=== PATIENT | male | born 1940 | race Caucasian/White ===

== ENCOUNTER → 2016-07-01 | Day surgery (SDC) | payer MEDICARE, BC ==
[~2016-07-01] MED LIST: ALTACE PO; ARIXTRA; ARIXTRA2.5 MG/0.5 INJ; ASPIRIN PO; AUGMENTIN PO; AUGMENTIN875 M1 PO; COMBIVENT MININEB INH; COMBIVENT U/D3 M1 INH; COUMADIN PO; COUMADIN5 MG PO; COUMADIN7.5 MG PO; DILANTIN; FLOMAX0.4 M1 PO; HCTZ PO; HYDROCODONE-APA1 T30; HYTRIN PO; IMITREX PO; LOPRESSOR PO; LOTENSIN PO; LOVENOX120 MG/0.8 INJ; LOVENOX80 MG/0.8 INJ; METHADONE PO; MORPHINE SULFAT60 M1 PO; MS CONTIN60 MG PO; MULTI-VITAMIN1 TAB; OXYCODONE HCL20 M1 PO; OXYCONTIN PO; OXYCONTIN40 MG PO; PERCOCET PO; PHENERGAN12.5 M1 PO; PHENERGAN25 M1 PO; PHENTERMINE H37.5 M1 PO; PLAVIX PO; PREDNISONE PO; PREDNISONE5 M1 PO; PRILOSEC20 MG PO; PROVENT1 EACH INH; RESTORIL15 MG PO; SYMBICORT INH; TENORMIN50 MG PO; VITAMIN B-1000 MCG/1 IJ; WELLBUTRIN XL; ZANAFLEX4 M1 PO; ZOCOR PO
--- NOTE | ~2016-07-01 | OR ---
Unit #: [id number] #: [id number] Patient: RODO CHOWDHURY [id number] [address] [address] [id number] O MR#: [id number] NAME: RODO CHWODHURY ROOM: Date of Procedure: 07/01/2016 Admission Date: 07/01/2016 Surgeon: Rigo Kumar M.D. : 1940 Attending Physician: Rigo Kumar M.D. Primary Care Physician: Lj Stringer Jr., M.D. OPERATIVE REPORT JOB NOTE: CC: [facility] PREOPERATIVE DIAGNOSES 1. Degenerative lumbar disk disease, back pain, spinal stenosis, radiculopathy. 2. Neck pain, cervical radiculopathy, degenerative cervical disk disease. POSTOPERATIVE DIAGNOSES 1. Degenerative lumbar disk disease, back pain, spinal stenosis, radiculopathy. 2. Neck pain, cervical radiculopathy, degenerative cervical disk disease. PROCEDURES PERFORMED 1. Lumbar epidural steroid injection with intravenous sedation and fluoroscopic guidance for needle localization. 2. Cervical epidural steroid injection with fluoroscopic guidance. INDICATIONS FOR PROCEDURE The patient is a 75-year-old male with previously mentioned diagnosis. It is partially settled with conservative and rehabilitative measures, but has significant pain consistent with radiculitis. Plan is for trial of epidural steroids at both the cervical and lumbar level. DESCRIPTION OF PROCEDURE The patient was placed in a seated position. Standard monitors were applied. 2 mg of Versed were given for sedation and anxiolysis, which were adequate. Vital signs remained stable. Sterile prep and drape then of lumbar area was performed. The skin then at the L4-L5 level was localized with 1% lidocaine. An 18-gauge Hustead needle was then advanced via loss of resistance technique and fluoroscopic guidance in toward the epidural space. After confirming proper positioning with fluoroscopy and radiographic contrast, 80 mg of Depo-Medrol and 4 mL of 0.125% bupivacaine were deposited. The patient tolerated this part of procedure well. A separate kit was used to sterilely prepped and draped the patient's cervical spine. The skin then at the C6-C7 level was localized with 1% lidocaine. An 18-gauge Hustead needle was then advanced via hanging drop technique and fluoroscopic guidance in toward the epidural space. After confirming proper needle tip positioning with fluoroscopy and radiographic contrast, a dose of 80 mg of Depo-Medrol and 2 mL of 0.25% bupivacaine were deposited. The patient tolerated the procedure otherwise well and was discharged to the recovery room in stable condition. Unit #: [id number] #: [id number] Patient: RODO CHOWDHURY Dictated by... Aneudy Gates/estela TD: 07/02/2016 00:03 JOB #: [id number] OPERATIVE REPORT Page 1 of 1 X Rigo Kumar MD X PROCEDURE OPERATIVE NOTE
== END | disposition home or self-care (01) ==
LOC: CCSC 10:35
DX: M51.16 Intervertebral disc disorders with radiculopathy, lumbar region (principal); M50.10 Cervical disc disorder with radiculopathy, unspecified cervical region; M48.06 Spinal stenosis, lumbar region; I25.10 Atherosclerotic heart disease of native coronary artery without angina pectoris; J44.9 Chronic obstructive pulmonary disease, unspecified; M19.90 Unspecified osteoarthritis, unspecified site
CPT/HCPCS: J1040; J2250

== ENCOUNTER → 2016-07-22 | Day surgery (SDC) | payer MEDICARE, BC | END | disposition home or self-care (01) | LOC: CCSC 10:50 | DX: M51.16 Intervertebral disc disorders with radiculopathy, lumbar region (principal); M50.10 Cervical disc disorder with radiculopathy, unspecified cervical region; Z79.899 Other long term (current) drug therapy; Z79.891 Long term (current) use of opiate analgesic; Z79.01 Long term (current) use of anticoagulants | CPT/HCPCS: J1040; J2250 ==

== ENCOUNTER → 2016-08-05 | Day surgery (SDC) | payer MEDICARE, BC ==
--- NOTE | ~2016-08-05 | OR ---
Unit #: [id number] #: [id number] Patient: RODO CHOWDHURY [id number] [address] [place], [place] [address] [id number] O MR#: [id number] NAME: RODO CHOWDHURY ROOM: Date of Procedure: 08/05/2016 Admission Date: 08/05/2016 Surgeon: Rigo Kumar M.D. : 1940 Attending Physician: Rigo Kumar M.D. Referring Physician: Rigo Kumar M.D. Primary Care Physician: Lj Stringer Jr., M.D. OPERATIVE REPORT PREOPERATIVE DIAGNOSES 1. Back pain, radiculopathy, degenerative disk disease. 2. Neck pain, cervical radiculopathy, degenerative cervical disk disease. POSTOPERATIVE DIAGNOSES 1. Back pain, radiculopathy, degenerative disk disease. 2. Neck pain, cervical radiculopathy, degenerative cervical disk disease. PROCEDURES PERFORMED 1. Lumbar epidural steroid injection with intravenous sedation and fluoroscopic guidance for needle localization. 2. Cervical epidural steroid injection with fluoroscopic guidance. INDICATIONS FOR PROCEDURE The patient is a 75-year-old male with previously mentioned diagnosis. He had epidural steroid injections done 2 weeks ago after failing attempts of conservative treatment in this patient with nonsurgical pathology. He has both neck and back issues with approximately 50%. Plan is to repeat second injection at this point. DESCRIPTION OF PROCEDURE The patient was placed in a seated position. Standard monitors were applied. 2 mg of Versed were given for sedation and anxiolysis, which were adequate. Vital signs remained stable. Sterile prep and drape then of lumbar area was performed. The skin then at the L5 level was localized with 1% lidocaine. An 18-gauge Hustead needle was then advanced via loss of resistance technique and fluoroscopic guidance in toward the epidural space. After confirming proper positioning with fluoroscopy and radiographic contrast, 80 mg of Depo-Medrol and 4 mL of 0.125% bupivacaine were deposited. PROCEDURE #2: A separate kit was used to sterilely prep and drape the patient's cervical spine. The skin at the C5-C6 level was localized with 1% lidocaine. An 18-gauge Hustead needle was then advanced via hanging drop technique and fluoroscopic guidance in toward the epidural space. After confirming proper positioning with fluoroscopy and radiographic contrast, 80 mg of Depo-Medrol and 2 mL of 0.25% bupivacaine were deposited. The patient tolerated this procedure well. Of note, this procedure was done on 07/22/2016. This note is being dictated at this point. The patient had another procedure done actually on 08/05/2016, but it is a separate procedure being dictated for 07/22/2016. Unit #: [id number] #: [id number] Patient: RODO CHOWDHURY Dictated by... Aneudy Gates/estela TD: 08/06/2016 10:55 JOB #: [id number] OPERATIVE REPORT Page 1 of 1 X Rigo Kumar MD X PROCEDURE OPERATIVE NOTE
--- NOTE | ~2016-08-05 | OR ---
Unit #: [id number] #: [id number] Patient: RODO CHOWDHURY [id number] [address] [address] [id number] O MR#: [id number] NAME: RODO CHOWDHURY ROOM: Date of Procedure: 08/05/2016 Admission Date: 08/05/2016 Surgeon: Rigo Kumar M.D. : 1940 Attending Physician: Rigo Kumar M.D. Referring Physician: Rigo Kumar M.D. Primary Care Physician: Lj Stringer Jr., M.D. OPERATIVE REPORT PREOPERATIVE DIAGNOSES 1. Low back pain, radiculopathy, degenerative lumbar disk disease. 2. Neck pain, cervical radiculopathy, degenerative cervical disk disease. POSTOPERATIVE DIAGNOSES 1. Low back pain, radiculopathy, degenerative lumbar disk disease. 2. Neck pain, cervical radiculopathy, degenerative cervical disk disease. PROCEDURES PERFORMED 1. Lumbar epidural steroid injection with intravenous sedation and fluoroscopic guidance for needle localization. 2. Cervical epidural steroid injection with fluoroscopic guidance. INDICATIONS FOR PROCEDURE The patient is a 76-year-old male with previously mentioned diagnoses. He has significant cervical and thoracic as well as lumbar nonsurgical disk and spine disease. He was treated medically with p.r.n. epidural steroids, that have given him very good improvement in his neck and low back issues. He failed all times the conservative treatment. Two injections were done at this point over the last month, so he has gotten added improvement in all components of his pain. He is able to be much more functionally sleeping better and it has greatly increased his ADLs. The pain is now back down to poorly controlled, so we are going to proceed with a final injection at this point and see the patient back at the pain center in a few months' time. DESCRIPTION OF PROCEDURE The patient was placed in a seated position. Standard monitors were applied. 2 mg of Versed were given for sedation and anxiolysis, which were adequate. Vital signs remained stable. Sterile prep and drape then of the lumbar area was performed. The skin then at the L4-L5 level was localized with 1% lidocaine. An 18-gauge NightOwl needle was then advanced via loss of resistance technique and fluoroscopic guidance in toward the epidural space. After confirming proper positioning with fluoroscopy and radiographic contrast, 80 mg of Depo-Medrol and 4 mL of 0.125% bupivacaine were deposited. The patient tolerated this part of procedure well. PROCEDURE #2: Cervical epidural steroid injection with fluoroscopic guidance. A separate kit was used to sterilely prep and drape the patient's cervical spine. The skin then at the C5-C6 level was localized with 1% lidocaine. An 18-gauge NightOwl needle was then advanced via Unit #: [id number] #: [id number] Patient: RODO CHOWDHURY hanging drop technique and fluoroscopic guidance in toward the epidural space. After confirming proper positioning with fluoroscopy and radiographic contrast, a dose of 80 mg of Depo-Medrol and 2 mL of 0.25% bupivacaine were deposited. The patient tolerated the procedure otherwise well and was discharged to the recovery room in stable condition. Dictated by... Aneudy Gates/estela TD: 08/06/2016 10:31 JOB #: [id number] OPERATIVE REPORT Page 1 of 1 X Rigo Kumar MD X PROCEDURE OPERATIVE NOTE
== END | disposition home or self-care (01) ==
LOC: CCSC 10:39
DX: M50.10 Cervical disc disorder with radiculopathy, unspecified cervical region (principal); M51.16 Intervertebral disc disorders with radiculopathy, lumbar region; I25.10 Atherosclerotic heart disease of native coronary artery without angina pectoris; J44.9 Chronic obstructive pulmonary disease, unspecified; M19.90 Unspecified osteoarthritis, unspecified site; Z79.51 Long term (current) use of inhaled steroids; Z79.891 Long term (current) use of opiate analgesic; Z79.899 Other long term (current) drug therapy
CPT/HCPCS: C1887; J1040; J2250

== ENCOUNTER 2016-08-21 19:43 | Inpatient (IN) | payer MEDICARE, BC ==
[~2016-08-21] VITALS: Ht 188 cm; Wt 109.0 kg
--- NOTE | ~2016-08-21 | EKG ---
PATIENT: RODO CHOWDHURY UNIT #: [id number] Ventricular Rate: 136 BPM Atrial Rate: 107 BPM QRS Duration: 82 ms Q-T Interval: 286 ms QTC Calculation(Bezet): 430 ms Calculated R [place]: -42 degrees Calculated T [place]: 58 degrees Diagnosis Line: Suspect unspecified pacemaker failure Diagnosis Line: Atrial fibrillation Left axis deviation Diagnosis Line: Abnormal ECG Diagnosis Line: No previous ECGs available Diagnosis Line: Confirmed by SAVANNAH FREEDMAN MD ([id number]) on Diagnosis Line: 08/22/2016 5:42:10 PM INTERPRETING MD: TANO KIM
--- NOTE | ~2016-08-21 | CT71 ---
[facility] Service of [facility] RADIOLOGY TEXT RESULTS PATIENT: RODO CHOWDHURY LOCATION: C5 560-01 : [birth year] UNIT #: [id number] AGE: [address]: Mariia Kilgore MD SEX: M ORDER DR: [id number] [facility] [address] [facility]. [place], [place] [address] [id number] I MR#: [id number] Acc #: [id number] NAME: RODO CHOWDHURY : 1940 SEX: M STUDY DATE/TIME: 08/26/2016 10:24 UNIT: [facility] ROOM: [facility] STUDY DESCRIPTION: CT Head Wo Contrast Attending Physician: Mariia Kilgore M.D. Ordering Physician: Mariia Kilgore M.D. Primary Care Physician: Lj Stringer Jr., M.D. MEDICAL IMAGING REPORT This report is preliminary unless electronic signature is present EXAM Head CT, 08/26. INDICATIONS Weakness, dizziness and blurred vision for 3 days after a fall. TECHNIQUE Axial images were obtained from the base to the vertex without contrast. This CT exam was performed with one or more of the following radiation dose reduction techniques: automatic exposure control, adjustment of mA and/or kV according to patient size, and iterative reconstruction. COMPARISON No comparison. FINDINGS There is generalized atrophy. Ventricular size and configuration are normal. Chronic small vessel ischemic changes are present in the white matter. Atherosclerotic calcifications are present in the carotid siphons. There are no skull fractures. There is no acute infarct or hemorrhage. There are no masses. IMPRESSION Atrophy with chronic small vessel ischemic disease in the white matter. No acute findings. Dictated by... Issa Solomon Jr., M.D. THIS IS AN ELECTRONICALLY VERIFIED REPORT Issa Solomon Jr., M.D. at 08/26/2016 5:05 PM RLK/anyit [facility] Service of [facility] RADIOLOGY TEXT RESULTS PATIENT: RODO CHOWDHURY LOCATION: [facility] 560-01 : [birth year] UNIT #: [id number] AGE: [address]: Mariia Kilgore MD SEX: M ORDER DR: TD: 08/26/2016 16:57 JOB #: [id number] MEDICAL IMAGING REPORT Page 1 of 1 COPY
--- NOTE | ~2016-08-21 | HP ---
Unit #: [id number] #: [id number] Patient: RODO CHOWDHURY [id number] [place] [address] [facility]. [place], [place] [address] [id number] I MR#: [id number] NAME: RODO CHOWDHURY ROOM: [facility] Age: 76 Sex: M Admission Date: 08/21/2016 : 1940 Attending Physician: Mariia Kilgore M.D. Primary Care Physician: Lj Stringer Jr., M.D. HISTORY AND PHYSICAL CHIEF COMPLAINT Shortness of breath, chest pain, cough with yellowish phlegm for two weeks. DISCUSSION This is a 76-year-old gentleman who is a very poor historian with history of chronic obstructive pulmonary disease, oxygen dependent, chronic respiratory failure, recurrent DVT, and pulmonary embolism on Lovenox, obstructive sleep apnea, noncompliant with CPAP, chronic pain, benign prostatic hypertrophy, coronary artery disease, migraines, follows with the [facility]. He was brought to the emergency room by his niece. He lives alone. Niece daily checks on him. He was brought to the emergency room with the chief complaint of chest pain, left-sided with deep breath, cough with yellowish phlegm. He was found to be atrial fibrillation with rapid ventricular rate in the emergency room, initially given Cardizem 20 mg IV, then started on Cardizem drip and on further workup, he has a large left mid lung infiltrate with BUN 42, creatinine 2.4, sodium is 124, and eventually being admitted. He is a very poor historian most of the information talking to his niece and talking to him altogether. He said that he had been sick for the last two weeks which has slowly progressively getting worse with yellowish phlegm and left-sided chest pain, shortness of breath, said he cannot breathe. PAST MEDICAL HISTORY 1. History of chronic obstructive pulmonary disease, oxygen-dependent at home. 2. Chronic respiratory failure. 3. History of recurrent DVT and pulmonary embolism. 4. Obstructive sleep apnea uses CPAP off and on. 5. Chronic pain. 6. Benign prostatic hypertrophy. 7. Coronary artery disease. 8. Migraine. PAST SURGICAL HISTORY 1. He has history of bilateral total knee arthroplasty. 2. Hernia repair bilaterally. SOCIAL HISTORY He used to be very heavy smoker for long time, three packs daily, he still smokes one pack a week, denies alcohol, denies illicit drug use. FAMILY HISTORY Positive for lung and breast cancer and bone malignancy in the family. Unit #: [id number] #: [id number] Patient: RODO CHOWDHURY HOME MEDICATIONS Medications from home is the followin. Restoril 15 mg at bedtime 2. Phenergan 25 mg p.r.n. 3. Flomax 0.4 mg daily 4. MS Contin 60 mg q.8h 5. Zanaflex 40 mg p.o. q.8h 6. Oxycodone 20 mg four times daily 7. Lovenox 80 mg subcu injection daily 8. Combivent q.6h p.r.n. 9. Imitrex 100 mg twice daily p.r.n. REVIEW OF SYSTEMS Negative except as in history of present illness. PHYSICAL EXAMINATION GENERAL: Elderly male lying in the bed comfortably, currently not in any distress. He is alert, awake, and oriented x3, comfortable, not in any distress. VITAL SIGNS: Current vitals are following, temperature 98.4, heart rate is 108, respiratory rate 22, and blood pressure 94/56, oxygen 100%. HEENT EXAMINATION: Pupils equal reactive to light and accommodation. Head: Normocephalic and atraumatic. NECK: Supple. No jugular venous distention. HEART: S1 and S2, rate irregular. LUNGS: Clear air entry bilaterally. ABDOMEN: Soft and nontender. Bowel sounds are positive, distended. EXTREMITIES: Inspection normal. Trace edema. No cyanosis, no clubbing. NEUROLOGIC: Alert and oriented x3, cranial nerves II through XII intact, moving all extremities. No focal neurologic deficit. PSYCH: Normal mood and affect. SKIN: Warm and dry, no skin lesions. DIAGNOSTIC STUDIES LABORATORY: Laboratory workup is the following, sodium is 124, potassium is 4.7, chloride 86, CO2 20, glucose 102, BUN 42, creatinine 2.4, LFT, bilirubin total 2.8, bilirubin indirect 1.4, and direct 1.4, white count is 22, hemoglobin is 15, hematocrit 47, platelets 147, INR 1.3. IMAGING: Chest x-ray shows left mid lung infiltrate. ASSESSMENT/PLAN 1. Pneumonia with left mid lung infiltrate, started on IV Rocephin, Zithromax. 2. Acute kidney injury, questionable baseline. He denied any history of kidney problems, continue IV fluids and normal saline, evaluate in the morning. 3. Atrial fibrillation with rapid ventricular rate. Will continue on Cardizem drip to control it, ask cardiology to evaluate. 4. Hyponatremia, IV fluids, normal saline, check TSH. 5. Leukocytosis. 6. Chronic obstructive pulmonary disease, oxygen-dependent home. 7. Chronic respiratory failure. 8. History of recurrent DVT and pulmonary embolism on Lovenox subcu on daily basis. 9. Obstructive sleep apnea, noncompliant with CPAP. 10. Chronic pain. 11. History of benign prostatic hypertrophy. Unit #: [id number] #: [id number] Patient: RODO CHOWDHURY 12. Coronary artery disease. 13. Migraine. Dictated by Aneudy Reynolds/denice TD: 08/22/2016 12:42 JOB #: [id number] HISTORY AND PHYSICAL Page 1 of 1 X X HISTORY AND PHYSICAL
--- NOTE | ~2016-08-21 | CR72 ---
[facility] A Service of [facility] RADIOLOGY TEXT RESULTS PATIENT: RODO CHOWDHURY LOCATION: [place] [id number] : 40 UNIT #: [id number] AGE: [address]: Mraiia Kilgore MD SEX: M ORDER DR: [id number] [facility] [address] [facility]. [place], [place] [address] [id number] I MR#: [id number] Acc #: [id number] NAME: RODO CHOWDHURY : 1940 SEX: M STUDY DATE/TIME: 08/23/2016 2:38 UNIT: [facility] ROOM: [facility] STUDY DESCRIPTION: CR Chest Single View Portable Attending Physician: Mariia Kilgore M.D. Ordering Physician: Maged Samuel M.D. Primary Care Physician: Lj Stringer Jr., M.D. MEDICAL IMAGING REPORT This report is preliminary unless electronic signature is present EXAM Portable chest INDICATION Pneumonia follow up. PROCEDURE Frontal view chest. COMPARISON 08/21/2016. FINDINGS Cardiomegaly is stable. Stable dense opacity in the left upper lung zone. No pneumothorax or new dense consolidation. IMPRESSION No change from 08/21/2016. Persistent left upper lung zone opacity. Dictated by... Sean Baer M.D. THIS IS AN ELECTRONICALLY VERIFIED REPORT Sean Baer M.D. at 08/23/2016 10:02 PM MARCELLO/alex TD: 08/23/2016 10:18 JOB #: [id number] MEDICAL IMAGING REPORT Page 1 of 1 COPY
--- NOTE | ~2016-08-21 | CR7 ---
[facility] A Service of [facility] & [facility] RADIOLOGY TEXT RESULTS PATIENT: RODO CHOWDHURY LOCATION: B 54-01 : 40 UNIT #: [id number] AGE: [address]: Mariia Kilgore MD SEX: M ORDER DR: [id number] [facility] [address] [facility]. [place], [place] [address] [id number] I MR#: [id number] Acc #: [id number] NAME: RODO CHOWDHURY : 1940 SEX: M STUDY DATE/TIME: 08/30/2016 15:39 UNIT: [facility] ROOM: [facility] STUDY DESCRIPTION: CR Abdomen Single AP View Attending Physician: Mariia Kilgore M.D. Ordering Physician: Mariia Kilgore M.D. Primary Care Physician: Lj Stringer Jr., M.D. MEDICAL IMAGING REPORT This report is preliminary unless electronic signature is present EXAM AP abdomen, 08/30/2016 HISTORY Abdominal distension, bloating and abdominal pain for 9 days. COMPARISON Flat and upright views of the abdomen, 08/27/2016 FINDINGS Study is limited secondary to patient body habitus. Extensive gaseous distension of both large and small bowel loops is thought to be present, most prominent within the region of the ascending colon and hepatic flexure. The degree of gaseous distension of the ascending colon appears increased compared to the prior examination. No gross free intraperitoneal air is identified on this supine study. No pneumatosis is evident. Incidental note is made of lumbar curvature to the left with endplate spurring. Imaged lung bases appear clear. IMPRESSION Diffuse gaseous dilation of multiple large and small bowel loops, once again favoring the presence of diffuse intracolonic ileus. The degree of gaseous distension of the ascending colon appears increased compared to 08/27/2016. Dictated by... Lisette Rees M.D. THIS IS AN ELECTRONICALLY VERIFIED REPORT Lisette Rees M.D. at 09/01/2016 11:57 AM NICANOR/chiquita TD: 08/31/2016 08:42 [facility] of [facility] RADIOLOGY TEXT RESULTS PATIENT: RODO CHOWDHURY LOCATION: [facility] 547-01 : 40 UNIT #: [id number] AGE: [address]: Mariia Kilgore MD SEX: M ORDER DR: JOB #: [id number] MEDICAL IMAGING REPORT Page 1 of 1 COPY
--- NOTE | ~2016-08-21 | CT55 ---
[facility] A Service of [facility] & [facility] RADIOLOGY TEXT RESULTS PATIENT: RODO CHOWDHURY LOCATION: C5B 560-01 : 40 UNIT #: [id number] AGE: [address]: Mariia Kilgore MD SEX: M ORDER DR: [id number] [facility] [address] [facility] [place], [place] [address] [id number] I MR#: [id number] Acc #: [id number] NAME: RODO CHOWDHURY : 1940 SEX: M STUDY DATE/TIME: 08/24/2016 17:32 UNIT: [facility] ROOM: [facility] STUDY DESCRIPTION: CT Chest W Con Attending Physician: Mariia Kilgore M.D. Ordering Physician: Mariia Kilgore M.D. Primary Care Physician: Lj Stringer Jr., M.D. MEDICAL IMAGING REPORT This report is preliminary unless electronic signature is present EXAM CT chest with IV contrast. HISTORY Left upper lobe mass, chest pain and shortness of air for [address] exam was performed with one or more of the following radiation dose reduction techniques: automatic exposure control, adjustment of mA and/or kV according to patient size, and iterative reconstruction. FINDINGS CT chest with IV contrast demonstrates extensive dense infiltrate throughout the majority the left upper lobe with sparing of the left apex, corresponding to findings on recent x-ray examinations. There are also mild multifocal patchy areas of subsegmental infiltrate in the posterior right middle lobe and in the bilateral lower lobes, slightly greater in the central left lower lobe. Very small bilateral pleural effusions. Small hiatal hernia. No adenopathy. Images of the upper abdomen demonstrate multiple small gallstones. Dilatation of the colon, measuring up to approximately 9 cm in the hepatic flexure. This could be secondary to colonic ileus. Small posterior left lower lobe pulmonary embolus, nonocclusive. I called this finding to the patient's nurse, Camille, at the time of this dictation. IMPRESSION 1. Extensive dense infiltrate throughout now the entire left upper lobe with relative sparing of the left apex corresponding to the dense infiltrate on recent chest x-rays. No underlying mass. Findings favor pneumonia. Correlation to the patient's clinical symptoms is recommended and short-term radiographic follow up is suggested. [facility] of [facility] RADIOLOGY TEXT RESULTS PATIENT: RODO CHOWDHURY LOCATION: C5B 560-01 : 40 UNIT #: [id number] AGE: [address]: Mariia Kilgore MD SEX: M ORDER DR: 2. Additional patchy subsegmental infiltrates in the lower lungs bilaterally, greater in the left lower lobe. 3. Small bilateral pleural effusions. 4. Small nonocclusive pulmonary embolus in the posterior left lower lobe. I called this finding to the patient's nurse at the time of this dictation. 5. Findings in the upper abdomen include small hiatal hernia, gallstones, and gaseous distension of the colon suggesting colonic ileus. 1. Dictated by... Aguilar Rosa M.D. THIS IS AN ELECTRONICALLY VERIFIED REPORT Aguilar Rosa M.D. at 08/25/2016 11:32 PM KAVITA/jose eduardo TD: 08/25/2016 07:13 JOB #: [id number] MEDICAL IMAGING REPORT Page 1 of 1 COPY
--- NOTE | ~2016-08-21 | XA166 ---
[facility] A Service of [facility] & [facility] RADIOLOGY TEXT RESULTS PATIENT: RODO CHOWDHURY LOCATION: C5B 560-01 : 40 UNIT #: [id number] AGE: [address]: Mariia Kilgore MD SEX: M ORDER DR: [id number] [facility] [address] [place], [place] [address] [id number] I MR#: [id number] Acc #: [id number] NAME: RODO CHOWDHURY : 1940 SEX: M STUDY DATE/TIME: 08/25/2016 16:35 UNIT: [facility] ROOM: [facility] STUDY DESCRIPTION: XA PICC Line Placement WO Port Attending Physician: Mariia Kilgore M.D. Ordering Physician: Mariia Kilgore M.D. Primary Care Physician: Lj Stringer Jr., M.D. MEDICAL IMAGING REPORT This report is preliminary unless electronic signature is present EXAM PICC line insertion INDICATIONS IV access PRE-PROCEDURE The procedure was explained to the patient and/or patient solar sales representative and assessor including risks, benefits, potential complications and potential for alternative forms of treatment. Informed consent was obtained, and prior to initiating the procedure a formal timeout procedure was performed. PROCEDURE Using full standard sterile barrier technique, including caps, gowns, gloves, masks, as well as sterile skin preparation and standard sterile draping, the left arm was prepped and draped in the usual fashion, and real-time sterile ultrasound guidance was used to localize the right basilic vein and to confirm vessel patency. A hard copy ultrasound image was recorded. After local anesthesia with 1% Xylocaine, the right basilic vein was punctured using real-time sterile ultrasound guidance, and an 0.018 guidewire was advanced into the superior vena cava, using fluoroscopic guidance. A 5-Mosotho, double-lumen PICC was then measured to 42 cm and deployed with the tip positioned in the superior vena cava. The position of the line was documented with a radiographic image. The line was secured in place with an adhesive dressing and an antibiotic patch was applied. Total fluoro time was 0.2 minutes. The reference air kerma is 7 mGy. IMPRESSION Successful right arm PICC line placement. [facility]. [facility] A Service of [facility] & [facility] RADIOLOGY TEXT RESULTS PATIENT: RODO CHOWDHURY LOCATION: C5B 560-01 : 40 UNIT #: [id number] AGE: [address]: Mariia Kilgore MD SEX: M ORDER DR: Dictated by... Jm Lerma M.D. THIS IS AN ELECTRONICALLY VERIFIED REPORT Jm Lerma M.D. at 08/27/2016 4:03 PM ARS/psc TD: 08/26/2016 02:25 JOB #: [id number] MEDICAL IMAGING REPORT Page 1 of 1 COPY
--- NOTE | ~2016-08-21 | CR72 ---
[facility] A Service of [facility] & [facility] RADIOLOGY TEXT RESULTS PATIENT: RODO CHOWDHURY LOCATION: [address] : 40 UNIT #: [id number] AGE: [address]: Mariia Kilgore MD SEX: M ORDER DR: [id number] [facility] [address]. [place], [place] [address] [id number] I MR#: [id number] Acc #: [id number] NAME: RODO CHOWDHURY : 1940 SEX: M STUDY DATE/TIME: 08/29/2016 03:59 UNIT: [facility] ROOM: [facility] STUDY DESCRIPTION: CR Chest Single View Portable Attending Physician: Mariia Kilgore M.D. Ordering Physician: Mariia Kilgore M.D. Primary Care Physician: Lj Stringer Jr., M.D. MEDICAL IMAGING REPORT This report is preliminary unless electronic signature is present EXAM Portable chest, 08/29 at 03:59 INDICATION Respiratory failure. Pneumonia. FINDINGS AP portable chest is compared with 08/26/2016. Right arm PICC in the SVC. There is emphysema. The right lung is clear. There is persistent left upper lobe infiltrate but it is slightly improved. No pneumothorax. Dictated by... Issa Solomon Jr., M.D. THIS IS AN ELECTRONICALLY VERIFIED REPORT Issa Solomon Jr., M.D. at 08/29/2016 9:23 PM JADE/chiquita TD: 08/29/2016 15:53 JOB #: [id number] MEDICAL IMAGING REPORT Page 1 of 1 COPY
--- NOTE | ~2016-08-21 | CR4 ---
[facility] A Service of [facility] & [facility] RADIOLOGY TEXT RESULTS PATIENT: RODO CHOWDHURY LOCATION: C5B 560-01 : 40 UNIT #: [id number] AGE: [address]: Mariia Kilgore MD SEX: M ORDER DR: [id number] [facility] [address] [place], [place] [address] [id number] I MR#: [id number] Acc #: [id number] NAME: RODO CHOWDHURY : 1940 SEX: M STUDY DATE/TIME: 08/27/2016 11:14 UNIT: B ROOM: [facility] STUDY DESCRIPTION: CR Abdomen Flat Upright or Dec Attending Physician: Mariia Kilgore M.D. Ordering Physician: Mariia Kilgore M.D. Primary Care Physician: Lj Stringer Jr., M.D. MEDICAL IMAGING REPORT This report is preliminary unless electronic signature is present EXAM Abdomen supine and upright, 08/27/2016 11:14 hours HISTORY Abdominal pain and distension since 08/21/2016. COMPARISON CT abdomen and pelvis, 02/01/2015 FINDINGS Supine and upright views of the abdomen were performed. Exam is limited as the films cannot include both flanks given the large body habitus. There is gaseous tension of the small bowel diffusely. Some colonic gas is seen. Findings are most suggestive of an adynamic ileus rather than small bowel obstruction, however clinical correlation and followup is recommended. Dense airspace change in the left upper lung and small left pleural effusion are similar to 08/26/2016. IMPRESSION 1. The films are limited by large body habitus. There is gaseous distension of multiple loops of small bowel with some colonic gas present. The findings are most suggestive of adynamic ileus rather than obstruction, but clinical correlation and follow up is recommended as early obstruction could have this appearance. 2. Upright film demonstrates no free air. Dictated by... Anita Pak M.D. THIS IS AN ELECTRONICALLY VERIFIED REPORT Anita aPk M.D. at 08/27/2016 10:33 PM FRITZ/chiquita [facility] A Service of [facility] & [facility] RADIOLOGY TEXT RESULTS PATIENT: RODO CHOWDHURY LOCATION: C5B 560-01 : 40 UNIT #: [id number] AGE: [address]: Mariia Kilgore MD SEX: M ORDER DR: TD: 08/27/2016 14:47 JOB #: [id number] MEDICAL IMAGING REPORT Page 1 of 1 COPY
--- NOTE | ~2016-08-21 | CR72 ---
[facility] A Service of [facility] & [facility] RADIOLOGY TEXT RESULTS PATIENT: RODO CHOWDHURY LOCATION: [facility]-18 : 40 UNIT #: [id number] AGE: [address]: Mariia Kilgore MD SEX: M ORDER DR: [id number] [facility] [address] [place], [place] [address] [id number] I MR#: [id number] Acc #: [id number] NAME: RODO CHOWDHURY : 1940 SEX: M STUDY DATE/TIME: 08/21/2016 20:19 UNIT: [facility] ROOM: [id number] STUDY DESCRIPTION: CR Chest Single View Portable Attending Physician: Azar Lord M.D. Ordering Physician: Ed Doctor [id number] [facility] Primary Care Physician: Lj Stringer Jr., M.D. MEDICAL IMAGING REPORT This report is preliminary unless electronic signature is present EXAM Portable chest HISTORY Chest pain and shortness of air for 4 days. FINDINGS Focal dense infiltrate left mid lung extending over a diameter of close to 12 cm. This is new compared to chest x-ray 02/04/2015. Considerations include focal pneumonia. Correlation to the patient's history and symptoms is recommended and short-term followup chest x-ray suggested. No additional infiltrates. Mild right lower thoracic curve. Incidental ossified loose bodies in the right shoulder. Dictated by... Aguilar Rosa M.D. THIS IS AN ELECTRONICALLY VERIFIED REPORT Aguilar Rosa M.D. at 08/22/2016 6:10 PM DFL/nato TD: 08/22/2016 02:05 JOB #: [id number] MEDICAL IMAGING REPORT Page 1 of 1 COPY
--- NOTE | ~2016-08-21 | A ---
[facility] Nutrition Therapy DATE: 08/31/16 Patient: RODO CHOWDHURY Physician: YANIQUE Address: [address] Room/Bed: [address] [place] [address], Zip: [place] [address] Admit Date: 08/21/16 Date of : 40 Height: 6 2 Weight: 225 102.5 NUTRITIONAL ASSESSMENT: REASON: LOS ASSESSMENT PT IS 76 Y.O. MALE ADMITTED FOR PNA, AFIB, RVR PMH: COPD, CHF, JOCELYNE, CAD, MIGRAINES, HTN, BPH, RECURRENT PE Anthropometrics: 6'2", WT: 235# (107 KG), BMI: 30.2 Labs: GLU: 132, BUN: 32, CA+:8.0, ALB: 2.0, AST: 60, NA+:134, PRE-ALB: 12.7 Meds: SENOKOT, REGLAN, MIRALAX, LAXATIVE, FUROSEMIDE, PROTONIX, SOLU-MEDROL, ZOFRAN, PHENERGAN I/O & Bowel function: 1350/1929, 4 BMs NOTED Skin Integrity: (R) HAND SKIN TEAR EDEMA: BLE 3+ EDEMA; BUE 2+ EDEMA; FACE TRACE EDEMA Assessment: CHART REVIEWED AND EVENTS NOTED. PT SEEN FOR LENGTH OF STAY (10 DAYS). PT REPORTS FAIR PO INTAKE AND APPETITE, NOTING OCCASIONAL DIFFICULTY SWALLOWING. PT REPORTS CONSUMING 100% BREAKFAST THIS AM. OF NOTE, BOX TRUCK DRIVER FOLLOWING AND DEEMS PT APPROPRIATE FOR CURRENT DIET OF HEALTHY HEART. THIS RD ENCOURAGED ADEQUATE KCAL AND PROTEIN INTAKE, PT AGREED TO ENSURE PUDDING BID, RD TO ORDER. PT REPORTED NO DIET QUESTIONS AT THIS VISIT. PER MD NOTES, PROGNOSIS GUARDED. Dx: INADEQUATE PROTEIN-ENERGY INTAKE R/T CURRENT DIAGNOSIS, PMH AEB PT REPORT ABOVE. Intervention: 1. HEALTHY HEART DIET 2. ENSURE PUDDING BID Monitoring, Evaluation and Goals: 1. ORAL INTAKE; CONSUME/TOLERATE >50% OF MEALS AND SUPPLEMENTS 2. WEIGHTS; PROMOTE GRADUAL WEIGHT LOSS TOWARDS HEALTHY BMI 3. LABS; WNL 4. SKIN; PROMOTE SKIN HEALING MONITOR ABOVE GOALS Recommendations: 1. PLEASE ORDER VANILLA ENSURE PUDDING BID W/MEALS [facility] Nutrition Therapy DATE: 08/31/16 Patient: RODO CHOWDHURY Physician: GOPRAN Address: [facility] [address] Room/Bed: [address] [place] [address], Zip: [place] [address] Admit Date: 08/21/16 Date of : 40 Height: 6 2 Weight: 225 102.5 2. 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 CONTINUE TO ENCOURAGE ADEQUATE PO INTAKE RD WILL F/U PER PROTOCOL PT IS MILDLY COMPROMISED Respectfully, FOREIGN WERNER MS, RD, LD [employer] [facility] cc: client file
--- NOTE | ~2016-08-21 | DS ---
Unit #: [id number] #: [id number] Patient: RODO CHOWDHURY [id number] [address] [address] [id number] I MR#: [id number] NAME: RODO CHOWDHURY ROOM: 54 Age: 76 Sex: M Admission Date: 08/21/2016 : 1940 Discharge Date: 09/01/2016 Attending Physician: Mariia Kilgore M.D. Primary Care Physician: Lj Stringer Jr., M.D. DISCHARGE SUMMARY ADDENDUM DATE OF 09/01/2016 PRINCIPAL DIAGNOSES Please add: 1. Presumed aspiration. 2. Acute on chronic diastolic congestive heart failure with ejection fraction of 55%. 3. Severe ileus, resolving. HOSPITAL COURSE Following last dictation, patient had a decline in his respiratory status on the evening of 08/29/2016. His was increasingly hypoxic and transferred back to the ICU where he was maintained on BiPAP on approximately 24 hours. The patient had improvement in symptoms and was subsequently transferred back to the floor. For respiratory status, his oxygenation continued to worsen and this happened primary after increase in oral intake. The patient had significant rhonchi after eating. The bedside swallow evaluation did not reveal any aspiration. Video swallow as ordered but patient initially refused. From a cardiac standpoint the patient remained stable. He was in chronic AFib but was rate controlled and is maintained on therapeutic anticoagulation both for his AFib and his known nonocclusive PE. The patient did develop a significant ileus but was placed on scheduled Reglan, laxatives and began having bowel movements with improvement in his associated abdominal pain. KUB did not reveal any perforation of the bowel. 24 hours prior to patient's the patient had increase in white blood cells. Workup for infectious etiology outside of his known pneumonia was negative. Patient was working with physical therapy the morning of 09/01/2016 and he became increasing hypoxic and subsequently loss his pulse. CPR was initiated. Patient underwent two doses of epinephrine, given amps of bicarb, but remained in asystole. Patient did not recover heartbeat and was subsequent pronounced on 09/01/2016 at 8:50 in the morning. Dictated by... Unit #: [id number] #: [id number] Patient: RODO CHOWDHURY M.D. KEH/ricky TD: 09/02/2016 12:07 JOB #: [id number] DISCHARGE SUMMARY Page 1 of 1 X Mariia Kilgore MD X DISCHARGE SUMMARY
--- NOTE | ~2016-08-21 | TOC ---
Unit #: [id number] #: [id number] Patient: RODO NIEVES [id number] [address] [address] [id number] I MR#: [id number] NAME: RODO NIEVES ROOM: 560 Age: 76 Sex: M Admission Date: 08/21/2016 : 1940 Attending Physician: Mariia Kilgore M.D. Primary Care Physician: Lj Stringer Jr., M.D. TRANSFER OF CARE SUMMARY PRINCIPAL DIAGNOSES 1. Septic shock secondary to left upper lobe community-acquired pneumonia. 2. Fosjv-vd-nkudgsp hypercapnic hypoxic respiratory failure maintained on two liters of oxygen per nasal cannula continuously. 3. Acute kidney injury, prerenal, now resolved. 4. Atrial fibrillation/atrial flutter with rapid ventricular response, now rate controlled and maintained on therapeutic anticoagulation. 5. Acute exacerbation of chronic obstructive pulmonary disease. 6. Nonocclusive left pulmonary embolism. 7. History of coagulopathy, on chronic Lovenox therapy. 8. Hypovolemic hyponatremia, resolved. 9. Acute coronary syndrome with elevated troponin. Peak at 0.25. 10. Chronic diastolic congestive heart failure with ejection fraction of 55%. 11. Visual hallucinations, likely secondary to sundowning. 12. Ileus. 13. Obstructive sleep apnea, noncompliant with CPAP. 14. Chronic pain syndrome, maintained on narcotics. 15. Thrombocytopenia. 16. Steroid-induced hyperglycemia. 17. Severe physical deconditioning. 18. Nonocclusive coronary artery disease. 19. Tobaccoism. 20. Moderate protein malnutrition. 21. Obesity. 22. Benign prostatic hypertrophy. 23. History of migraine headache. CONSULTANTS 1. Dr. Titi Samuel, pulmonology. 2. Dr. Calvillo, cardiology. PROCEDURES 1. Two-dimensional echocardiogram on August 22, 2016 with an ejection fraction of 55%, grade I diastolic dysfunction noted, mild concentric left ventricular hypertrophy noted. 2. Chest x-ray on August 21, 2016 with dense infiltrate of the left upper lobe/midlung. 3. CT of the chest with contrast on August 24, 2016 with extensive dense infiltrate throughout the entire left upper lobe with relative sparing of the left apex. No evidence of underlying mass. Patchy subsegmental infiltrates in the lower lungs bilaterally, greater left Unit #: [id number] #: [id number] Patient: RODO NIEVES than right. Small bilateral pleural effusion. Small nonocclusive pulmonary embolus in the posterior left lower lobe. Small hiatal hernia with gallstones and gaseous distention of the colon noted. 4. CT of the head without contrast on August 26, 2016 with atrophy and chronic small vessel ischemic change. No acute findings. CLINICAL HISTORY AND HOSPITAL COURSE Mr. Nieves is 76-year-old male brought to the emergency department with increasing shortness of breath and cough. In the emergency department patient was found to be increasingly hypoxic and chest x-ray revealed significant left upper lobe infiltrate. Creatinine was also elevated up to 2.4 and patient was found to be hyponatremic with a sodium of 124. Patient was subsequently admitted. In regard to the patient's respiratory failure and pneumonia, he was placed initially on BiPAP therapy and pulmonology was consulted. He did develop significant sepsis with associated hypotension during hospitalization and did require pressor therapy for approximately 48 hours. At this time causative organism of pneumonia has not been identified and patient is being maintained on Rocephin and azithromycin. Leukocytosis has improved though I will admit has not resolved at time of discharge. However, his oxygenation has improved and he is now returned to his baseline of 2 to 3 L liters of oxygen per nasal cannula continuously. He is currently being initiated on vest therapy in addition to saline nebs to help with any associated mucous plugging. CT scan did not reveal any underlying mass. Will continue on current antibiotics with pulmonary toilet. In regard to the patient's hypotension, again this did resolve. He has been placed on ProAmatine for improved blood pressure control but now blood pressure is stable. Will taper off over the next several days. In regard to the patient's acute kidney injury, this has resolved with IV hydration. Creatinine is now 0.7. I will also note the patient's hyponatremia has also essentially resolved but sodium remains approximately 132 or so. Urine studies indicate perhaps a slight underlying SIADH but he is not having any symptoms currently from his hyponatremia. Patient was found to be in afib/aflutter, for the most part has remained rate controlled. He is on therapeutic Lovenox. Patient has an underlying coagulopathy and was maintained on Lovenox by Dr. Nichols as an outpatient. However, his weight has increased and, with findings of this nonocclusive PE which may be acute versus chronic, he has been placed on therapeutic Lovenox and is not having any complications at this point. He is mildly thrombocytopenic but levels are stable and will continue to be monitored. Patient does have some significant chronic low back pain for which he is on chronic narcotic therapy. This has been tapered during hospitalization due to his respiratory status and associated somnolence. I will continue on current doses for now. He has been seen by physical therapy and is significantly, significantly weak and will require subacute rehab upon discharge. Patient has developed visual hallucinations since transfer from the ICU and these are primarily at night. I have placed him on a low dose of Unit #: [id number] #: [id number] Patient: RODO NIEVES and this has seemed to help symptoms. Patient has also developed a mild ileus which we are treating symptomatically for now and KUB today is currently pending. Further hospital course to be dictated as an addendum. Dictated by... Mariia Kilgore M.D. [facility] TD: 08/27/2016 15:44 JOB #: [id number] TRANSFER OF CARE SUMMARY Page 1 of 1 X Mariia Kilgore MD TRANSFER OF CARE SUMMARY
--- NOTE | ~2016-08-21 | CR72 ---
[facility] A Service of [facility] & [facility] RADIOLOGY TEXT RESULTS PATIENT: RODO CHOWDHURY LOCATION: B 560-01 : 40 UNIT #: [id number] AGE: [address]: Mariia Kilgore MD SEX: M ORDER DR: [id number] [facility] [address] [facility]. [place], [place] [address] [id number] I MR#: [id number] Acc #: [id number] NAME: RODO CHOWDHURY : 1940 SEX: M STUDY DATE/TIME: UNIT: B ROOM: [facility] STUDY DESCRIPTION: CR Chest Single View Portable Attending Physician: Mariia Kilgore M.D. Ordering Physician: Kailyn Calvillo M.D. Primary Care Physician: Lj Stringer Jr., M.D. MEDICAL IMAGING REPORT This report is preliminary unless electronic signature is present EXAM Chest portable 08/26/2016 1043 hours HISTORY 76-year-old man with shortness of air, chest pain for [address] chest and chest x-rays 08/24/2016 FINDINGS Portable upright chest demonstrates stable cardiomegaly, tortuous aorta. There is a new right PICC line with tip at junction of SVC and right atrium. The right lung appears clear and there is no right effusion. There is persistent dense airspace density in the left upper lobe and patchy density in the left lower lobe. No definite left effusion. IMPRESSION 1. Right PICC line tip is at the junction of SVC and right atrium. There is no pneumothorax. 2. The right lung is clear. 3. Persistent dense airspace change in the left upper lobe with patchy density at the left lung base. No appreciable change from 08/24/2016. No definite effusion. Dictated by... Anita Pak M.D. THIS IS AN ELECTRONICALLY VERIFIED REPORT Anita Pak M.D. at 08/27/2016 8:52 AM SMM/to TD: 08/26/2016 17:09 JOB #: [id number] [facility] A Service of [facility] & [facility] RADIOLOGY TEXT RESULTS PATIENT: RODO CHOWDHURY LOCATION: C5B 560-01 : 40 UNIT #: [id number] AGE: [address]: Mariia Kilgore MD SEX: M ORDER DR: MEDICAL IMAGING REPORT Page 1 of 1 COPY
--- NOTE | ~2016-08-21 | EKG ---
PATIENT: RODO CHOWDHURY UNIT #: [id number] Ventricular Rate: 104 BPM Atrial Rate: 102 BPM QRS Duration: 78 ms Q-T Interval: 314 ms QTC Calculation(Bezet): 412 ms Calculated R Castile: -47 degrees Calculated T Castile: 49 degrees Diagnosis Line: Atrial fibrillation with rapid ventricular Diagnosis Line: response Diagnosis Line: Left anterior fascicular block Diagnosis Line: Inferior infarct , age undetermined Diagnosis Line: Poor data quality Diagnosis Line: Abnormal ECG Diagnosis Line: Diagnosis Line: Confirmed by JOSE WING MD ([id number]) on Diagnosis Line: 08/23/2016 12:18:54 PM INTERPRETING MD: DAVID
--- NOTE | ~2016-08-21 | CO ---
Unit #: [id number] #: [id number] Patient: RODO NIEVES [id number] [address] [place], [place] [address] [id number] I MR#: [id number] NAME: RODO NIEVES ROOM: CICCU3 Age: 76 Sex: M Admission Date: 08/21/2016 : 1940 Attending Physician: Mariia Kilgore M.D. Primary Care Physician: Lj Stringer Jr., M.D. CONSULTATION REPORT HISTORY OF PRESENT ILLNESS Mr. Nieves is a 76-year-old white male, who has been seen by Dr. Lara in the past. He presented with a 3 to 4-day history of left-sided chest pain, increasing shortness of breath with cough. In the emergency room, chest x-ray revealed a large left upper lobe infiltrate. His initial blood pressure was 94/56 with a pulse of 108, respiratory rate 22, temperature 98.5. His blood pressure fell to 86/40, he was then into 65/45, he was treated with sepsis protocol, received IV fluids, current pressure is 100/86. Of note, his lab work reveals arterial blood gases pH 7.40, pCO2 of 31, PO2 of 75 on 3 L. Chemistries initial creatinine was 2.5 it is fallen to 1.4. Sodium has risen from 124 to 127. Bilirubin was elevated at 2.8. Lactate was 1.7, currently 1.2. Troponin max was 0.25. White blood cell count 25,900, hematocrit 41.2, platelets normal. PAST MEDICAL HISTORY Acute history of DVT and pulmonary emboli with hypercoagulable state, maintained on Lovenox daily; history of COPD and obstructive sleep apnea, intolerant to CPAP, followed by Dr. Lara, wears oxygen at 2 L nocturnally. PAST SURGICAL HISTORY Bilateral knee surgery, hiatal hernia repair. ALLERGIES None listed. REVIEW OF SYSTEMS Difficult due to dyspnea, otherwise negative 10-point system. SOCIAL HISTORY I believe reformed smoker, now continues to smoke a few cigarettes a day. Denies alcohol use or illicit drugs. FAMILY HISTORY Breast cancer and malignancy. HOME MEDICATIONS Listed Restoril, Phenergan, Flonase, MS Contin, Zanaflex, oxycodone, Lovenox, Combivent, and Imitrex. PHYSICAL EXAMINATION GENERAL: White male, lying in bed, able to speak in sentences. VITAL SIGNS: Blood pressure is 102/62, pulse 95, respiratory rate 22, afebrile. HEENT: Normocephalic and atraumatic. Pupils are equal, round, and Unit #: [id number] #: [id number] Patient: RODO NIEVES reactive. Sclerae are nonicteric. Posterior pharynx clear. Mucous membranes moist. NECK: Supple. Trachea midline. LUNGS: Some scattered rhonchi. CARDIAC: Irregular rate and rhythm. Could not appreciate murmur, rub, or gallop. ABDOMEN: Nontender. Bowel sounds present. EXTREMITIES: Without clubbing, cyanosis, or edema. NEUROLOGIC: Awake and oriented x3. Cranial nerves grossly intact. Muscle strength is fairly symmetric. DIAGNOSTIC STUDIES LABORATORY RESULTS: Reviewed. IMPRESSION 1. Septic shock. 2. Left upper lobe community-acquired pneumonia. 3. Exacerbation of chronic obstructive pulmonary disease. 4. Atrial fibrillation rapid ventricular response. 5. Obstructive sleep apnea, noncompliant with CPAP on nocturnal O2. 6. Acute kidney injury, improved with hydration. 7. Mildly elevated troponin, rule out myocardial infarction. 8. History of coagulopathy with right-sided deep vein thrombosis and pulmonary emboli in the past, maintained on chronic Lovenox, followed by Dr. Nichols. 9. Chronic pain. PLAN Broad-spectrum antibiotics for community-acquired pneumonia. Treat COPD with inhaled bronchodilators, IV Solu-Medrol, sepsis protocol, continue Lovenox. Panculture. Further recommendations pending this. Cardiology to see for elevated troponin. Dictated by... Maged Samuel M.D. CASANDRA/estela TD: 08/23/2016 23:00 JOB #: [id number] CONSULTATION REPORT Page 1 of 1 X Maged Samuel MD X CONSULTATION REPORT
--- NOTE | ~2016-08-21 | CR72 ---
[facility] A Service of [facility] & [facility] RADIOLOGY TEXT RESULTS PATIENT: RODO CHOWDHURY LOCATION: [facility] 560-01 : 40 UNIT #: [id number] AGE: [address]: Mariia Kilgore MD SEX: M ORDER DR: [id number] [facility] [address] [facility]. [place], [place] [address] [id number] I MR#: [id number] Acc #: [id number] NAME: RODO CHOWDHURY : 1940 SEX: M STUDY DATE/TIME: 08/24/2016 6:14 UNIT: [facility] ROOM: [facility] STUDY DESCRIPTION: CR Chest Single View Portable Attending Physician: Mariia Kilgore M.D. Ordering Physician: Maged Samuel M.D. Primary Care Physician: Lj Stringer Jr., M.D. MEDICAL IMAGING REPORT This report is preliminary unless electronic signature is present EXAM Portable chest INDICATION Follow up pneumonia. COMPARISON 08/23/2016. FINDINGS Slight improvement in left lung infiltrate with decreased density. There is new atelectasis or infiltrate within the left lung base however. Heart size stable. IMPRESSION 1. The dominant left lung infiltrate is slightly improved with decreased density. 2. There is new atelectasis or infiltrate within the left lung base. Dictated by... Jm Lerma M.D. THIS IS AN ELECTRONICALLY VERIFIED REPORT Jm Lerma M.D. at 08/25/2016 4:59 PM MARK/alex TD: 08/24/2016 14:16 JOB #: [id number] MEDICAL IMAGING REPORT Page 1 of 1 COPY
--- NOTE | ~2016-08-21 | CR72 ---
[facility] A Service of [facility] & [facility] RADIOLOGY TEXT RESULTS PATIENT: RODO CHOWDHURY LOCATION: [place] [address]- : [birth year] UNIT #: [id number] AGE: [address]: Mariia Kilgore MD SEX: M ORDER DR: [id number] [facility] [address] [facility]. [place], [place] [address] [id number] I MR#: [id number] Acc #: [id number] NAME: RODO CHOWDHURY : 1940 SEX: M STUDY DATE/TIME: 09/01/2016 UNIT: [facility] ROOM: [facility] STUDY DESCRIPTION: CR Chest Single View Portable Attending Physician: Mariia Kilgore M.D. Ordering Physician: Maged Samuel M.D. Primary Care Physician: Lj Stringer Jr., M.D. MEDICAL IMAGING REPORT This report is preliminary unless electronic signature is present EXAM Portable chest 09/01 at 04:37 INDICATIONS Respiratory failure. Pneumonia. FINDINGS AP portable chest compared 08/30/2016. Right arm PICC in the SVC. Heart size stable. There is continued coarse infiltrate in the left mid to upper lung. It is not significantly changed. Right lung is clear and there is no pneumothorax. Dictated by... Issa Solomon Jr., M.D. THIS IS AN ELECTRONICALLY VERIFIED REPORT Issa Solomon Jr., M.D. at 09/01/2016 9:41 PM RLK/kimberlyn TD: 09/01/2016 10:17 JOB #: [id number] MEDICAL IMAGING REPORT Page 1 of 1 COPY
--- NOTE | ~2016-08-21 | EKG ---
PATIENT: RODO CHOWDHURY UNIT #: [id number] Ventricular Rate: 61 BPM Atrial Rate: 258 BPM QRS Duration: 90 ms Q-T Interval: 390 ms QTC Calculation(Bezet): 392 ms Calculated R [place]: -17 degrees Calculated T [place]: 18 degrees Diagnosis Line: Atrial fibrillation Diagnosis Line: Abnormal ECG Diagnosis Line: When compared with ECG of 22-AUG-2016 05:55, Diagnosis Line: (unconfirmed) Diagnosis Line: Vent. rate has decreased BY 43 BPM Diagnosis Line: Confirmed by JOSE WING MD ([id number]) on Diagnosis Line: 08/23/2016 12:22:38 PM INTERPRETING MD: DAVID
--- NOTE | ~2016-08-21 | CO ---
Unit #: [id number] #: [id number] Patient: RODO CHOWDHURY [id number] [address] [place], [place] [address] [id number] I MR#: [id number] NAME: RODO CHOWDHURY ROOM: [facility]3 Age: 76 Sex: M Admission Date: 08/21/2016 : 1940 Attending Physician: Mariia Kilgore M.D. Primary Care Physician: Lj Stringer Jr., M.D. CONSULTATION REPORT REASON FOR CONSULTATION Atrial fibrillation and elevated troponin. HISTORY OF PRESENT ILLNESS This is a 76-year-old white male, who is admitted with a complaint of shortness of breath, chest pain, fever, and chills for the past 2 weeks worsening since . He describes chest pain as a pressure in the substernal nonradiating to his neck, arm, or jaw. His chest pain is made worse with deep inspiration and cough. The pain has been constant. Prior to , he reports occasional chest pain that presents at rest as well on exertion. He had a productive cough with yellow sputum. He came to the emergency room for evaluation, where he was admitted with left upper lobe pneumonia. In the emergency room, the patient was found to be in atrial fibrillation with rapid ventricular response with his rate up to 120 beats per minute. He was started on Cardizem drip, but was later discontinued because of hypotension where his blood pressure was 65/42 mmHg. He was started on Levophed and given IV fluids. From a cardiac standpoint, the patient has had a lateral wall ST elevation myocardial infarction in the past that was dictated on a prior report by cardiovascular associates. Apparently, he had a cardiac catheterization where he was found to have a small ramus that was culprit lesion with nonobstructive disease to the LAD and right coronary artery. No intervention was done secondary to small vessel disease. His last known echocardiogram was in 2008 when he had normal left ventricular systolic function. He has been seen in the past by Dr. Salinas and underwent an extensive hypercoagulable workup that was negative. 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 The patient states he has had no cardiac workup since his heart catheterization. BNP 330. Troponin initially negative, but has peaked to 0.25. He also was initially in acute kidney injury where his creatinine was 2.4. PAST MEDICAL HISTORY 1. Lateral wall ST elevation myocardial infarction with history of cardiac catheterization which found the patient to have the culprit lesion to be the small ramus intermedius branch. With mild disease in the circumflex and LAD and moderate disease in the diagonal according to the dictation dated on 11/30/2006 per cardiovascular associated. No intervention secondary to small vessel disease. 2. 2D echocardiogram on 02/18/2008 showed an ejection fraction of greater than 55% with trace mitral regurgitation and trace tricuspid regurgitation. 3. Hypertension. 4. Obstructive sleep apnea. Unit #: [id number] #: [id number] Patient: RODO CHOWDHURY 5. Recurrent PE/DVT, on Lovenox. 6. COPD. 7. Chronic pain. 8. Active smoker. 9. Degenerative joint disease. PAST SURGICAL HISTORY 1. Hernia repair. 2. Bilateral knee surgeries. SOCIAL HISTORY The patient is . He ambulates with a cane. He smokes a pack of cigarettes a day, cut down from 4 packs a day. He denies illicit drug or alcohol use. FAMILY HISTORY Negative for coronary artery disease. ALLERGIES No known drug allergies. HOME MEDICATIONS Restoril 15 mg q.h.s., Phenergan 25 mg daily p.r.n., Flomax 0.4 mg daily, MS Contin 60 mg q.8 hours, Zanaflex 4 mg q.8 hours, oxycodone 20 mg q.i.d., Lovenox 80 mg daily, Combivent unit dose via mini nebs q.6 hours p.r.n., and Imitrex 100 mg b.i.d. REVIEW OF SYSTEMS CONSTITUTIONAL: Positive for fever and chills. Has no weight gain or weight loss. Reports fatigue and weakness. HEENT: No headache, hearing or vision changes, difficulty with swallowing. Negative for dizziness. CARDIOVASCULAR: Has chest pain as described in the HPI. Denies palpitations. No paroxysmal nocturnal dyspnea or orthopnea. Denies syncope or near syncope. RESPIRATORY: Positive for dyspnea at rest, worse on exertion. Has a productive cough with yellow sputum. No hemoptysis. GASTROINTESTINAL: Negative for abdominal pain. Has occasional nausea. No constipation. No melena. EXTREMITIES: Negative for lower extremity edema. PHYSICAL EXAMINATION VITAL SIGNS: Blood pressure 102/62, heart rate 65, temperature 97.9. GENERAL: This is a 76-year-old obese, white male, who is in no acute respiratory distress. NEUROLOGIC: He is awake, alert, but somewhat drowsy. There are no focal weaknesses. NECK: Trachea is midline. No thyromegaly or lymphadenopathy. No jugular venous distention. HEART: S1 and S2. Heart sounds are normal. No murmurs. No rubs or clicks. Irregularly irregular rhythm. LUNGS: With diminished breath sounds in both lungs with rhonchi in the left lung base. There are faint expiratory wheezes. ABDOMEN: Soft and nontender with bowel sounds are present. EXTREMITIES: Without leg edema. SKIN: Pale and dry. Noted for multiple ecchymotic areas on bilateral upper extremities. Unit #: [id number] #: [id number] Patient: RODO CHOWDHURY DIAGNOSTIC STUDIES LABORATORY RESULTS: Hemoglobin 13.3, hematocrit 41.2, platelet count 165, white count 25.9. Sodium 127, potassium 4.0, BUN 32, creatinine 1.4, glucose 86, calcium 9.9, lactic acid 1.2. BNP 330. Troponin less than 0.05 to 0.07 to 0.25. IMAGING STUDIES: Chest x-ray shows pneumonia in the left upper base. CARDIOVASCULAR STUDIES: EKG shows atrial fibrillation with rapid response with a rate of 104 beats per minute with left anterior fascicular block. IMPRESSION 1. Acute on chronic respiratory failure. 2. Left upper lobe pneumonia. 3. Chronic obstructive pulmonary disease exacerbation. 4. Septic shock. 5. Hypotension secondary to sepsis. 6. New onset atrial fibrillation with rapid ventricular response converted to controlled ventricular rate of unknown duration. 7. Coronary artery disease with history of ST-elevation myocardial infarction, medically managed. 8. Elevated troponin peaked at 0.25. 9. Hyponatremia. 10. History of pulmonary embolism/deep vein thrombosis, on Lovenox. 11. Chronic back pain. PLAN 1. Cardiology was consulted for atrial fibrillation. Elevated troponin. There is unknown duration of the patient's atrial fibrillation. This rate is currently controlled. He has a CHADS2-VASc score of 3 and needs long-term anticoagulation for stroke prevention. He has been on Lovenox and has been followed by Hematology in the past. We will continue for now. 2. Hold off on beta darci while on Levophed. 3. The patient has known coronary artery disease and elevated troponin. We will continue to trend troponin and repeat EKG. He may require further cardiac workup prior to discharge depending on this hospital course. 4. Echocardiogram will be obtained to evaluate left ventricular systolic function. 5. No overt heart failure is noted on examination. 6. Further recommendations to follow. Thank you for allowing us to assist with this patient's care. Dictated by... Osorio VerdinRGer for Aneudy Goyal/estela TD: 08/24/2016 00:38 JOB #: [id number] Unit #: [id number] #: [id number] Patient: RODO CHOWDHURY CONSULTATION REPORT Page 1 of 1 X Ramiro Gallego [employer] X CONSULTATION REPORT
--- NOTE | ~2016-08-21 | CR72 ---
[facility] A Service of [facility] & [facility] RADIOLOGY TEXT RESULTS PATIENT: RODO CHOWDHURY LOCATION: [facility] : [birth year] UNIT #: [id number] AGE: [address]: Mariia Kilgore MD SEX: M ORDER DR: [id number] [facility] [address] [facility]. [place], [place] [address] [id number] I MR#: [id number] Acc #: [id number] NAME: RODO CHWODHURY : 1940 SEX: M STUDY DATE/TIME: 08/30/2016 UNIT: [facility] ROOM: [facility] STUDY DESCRIPTION: CR Chest Single View Portable Attending Physician: Mariia Kilgore M.D. Ordering Physician: Landon Uribe M.D. Primary Care Physician: Lj Stringer Jr., M.D. MEDICAL IMAGING REPORT This report is preliminary unless electronic signature is present EXAM Portable chest 08/30 at 04:17 hours INDICATIONS Respiratory failure, pneumonia for 9 days. FINDINGS AP portable chest compared with 08/29/2016. Left mid to upper lung infiltrate is unchanged in the short interval. Right lung is clear. Heart size stable. Right arm PICC in the SVC. No pneumothorax. Dictated by... Issa Solomon Jr., M.D. THIS IS AN ELECTRONICALLY VERIFIED REPORT Issa Solomon Jr., M.D. at 08/30/2016 9:11 PM EBONIK/kimberlyn TD: 08/30/2016 11:27 JOB #: [id number] MEDICAL IMAGING REPORT Page 1 of 1 COPY
[~2016-08-21 19:43] MED LIST changes: -AUGMENTIN PO
[2016-08-21 20:53] LABS: BASOPHIL# 0.1 X10e3 (0-0.3); BASOPHIL% 0.6 % (0-2.5); EOSINOPHIL% 0.1 % (0.0-7.0); HEMATOCRIT 47.1 % (38.0-50.0); HEMOGLOBIN 15.3 gm/dL (13.0-16.0); LYMPHOCYTE# 0.2 X10e3 (1.0-3.5); LYMPHOCYTE% 1.1 % (17.0-45.0); MEAN CELL VOLUME 91.9 FL (83-96); MEAN CORPUSCULAR HEMOGLOBIN 29.9 PG (28-34); MEAN CORPUSCULAR HGB CONC 32.5 g/dL (30-36); MEAN PLATELET VOLUME 8.4 FL (6.5-11.5); MONOCYTE# 0.5 X10e3 (0-1.0); MONOCYTE% 2.3 % (3.0-12.0); NEUTROPHIL# 21.5 X10e3 (1.5-7.1); NEUTROPHIL% 95.9 % (40-75); PLATELET COUNT 147 X10e3 (140-420); RED BLOOD COUNT 5.13 X10e (3.90-5.60); RED CELL DISTRIBUTION WIDTH 14.6 % (11.0-15.5); WHITE BLOOD COUNT 22.4 X10e3 (4.0-10.5)
[2016-08-21 20:54] LABS: DIFF IND YES
[2016-08-21 21:05] LABS: INR 1.3
[2016-08-21 21:11] LABS: ANISOCYTOSIS MOD; PLATELET ESTIMATE NORMAL (NORMAL)
[2016-08-21 21:14] LABS: ALBUMIN SERUM 2.5 g/dL (3.5-5.0); BILIRUBIN, DIRECT 1.4 mg/dL (0.0-0.2); BILIRUBIN,INDIRECT 1.4 mg/dL (0.0-0.9); BILIRUBIN,TOTAL 2.8 mg/dL (0.2-2.0); BUN/CREATININE RATIO 16.8; CREATININE SERUM 2.5 mg/dL (0.6-1.4); POTASSIUM 4.7 mmol/L (3.5-5.1); PROTEIN TOTAL SERUM 6.7 g/dL (6.0-8.3)
[2016-08-22 02:42] LABS: %MB 4.9 % (0.0-4.0); MB 19.7 ng/ml
[2016-08-22 03:08] LABS: POC - CKMB 25.4 ng/mL (0.0-7.9); POC - TROPONIN <0.05 ng/mL (<=0.05)
[2016-08-22 07:00] LABS: ARTERIAL BLD GAS O2 SATURATION 93.2 % (90.0-100.0); ARTERIAL BLOOD GAS CARBOXY HB 0.6 %sat (0.0-9.0); ARTERIAL BLOOD GAS HCO3 19.8 mmol/L; ARTERIAL BLOOD GAS PCO2 31.7 mmHg (35.0-45.0); ARTERIAL BLOOD GAS pH 7.404 (7.350-7.450)
[2016-08-22 07:01] LABS: ARTERIAL BLOOD GAS ART SITE RIGHT BRACHIAL; ARTERIAL BLOOD GAS DELIVERY NASAL CANNULA; ARTERIAL BLOOD GAS PO2 75.7 mmHg (80.0-100); ARTERIAL DRAW? YES
[2016-08-22 07:21] LABS: %MB 4.8 % (0.0-4.0); MB 34.2 ng/ml
[2016-08-22 07:58] LABS: BASOPHIL# 0.1 X10e3 (0-0.3); BASOPHIL% 0.5 % (0-2.5); HEMATOCRIT 41.2 % (38.0-50.0); HEMOGLOBIN 13.3 gm/dL (13.0-16.0); LYMPHOCYTE# 0.2 X10e3 (1.0-3.5); LYMPHOCYTE% 0.9 % (17.0-45.0); MEAN CELL VOLUME 91.7 FL (83-96); MEAN CORPUSCULAR HEMOGLOBIN 29.7 PG (28-34); MEAN CORPUSCULAR HGB CONC 32.3 g/dL (30-36); MEAN PLATELET VOLUME 8.9 FL (6.5-11.5); MONOCYTE# 0.4 X10e3 (0-1.0); MONOCYTE% 1.5 % (3.0-12.0); NEUTROPHIL# 25.1 X10e3 (1.5-7.1); NEUTROPHIL% 97.1 % (40-75); PLATELET COUNT 160 X10e3 (140-420); RED CELL DISTRIBUTION WIDTH 14.9 % (11.0-15.5); WHITE BLOOD COUNT 25.9 X10e3 (4.0-10.5)
[2016-08-22 07:59] LABS: DIFF IND NO
[2016-08-22 08:09] LABS: BILIRUBIN,TOTAL 2.1 mg/dL (0.2-2.0); BUN/CREATININE RATIO 23.57; CALCIUM SERUM 7.9 mg/dL (8.4-10.2); CREATININE SERUM 1.4 mg/dL (0.6-1.4); GLOM FILT RATE Estimated 48.5 mL/min (>60); PROTEIN TOTAL SERUM 5.5 g/dL (6.0-8.3)
[2016-08-22 11:40] LABS: URINE APPEARANCE CLEAR; URINE BLOOD 3+ (NEG); URINE COLOR DK YELLOW; URINE GLUCOSE NEG (NEG); URINE KETONE 2+ (NEG); URINE LEUKOCYTE ESTERASE TRACE (NEG); URINE NITRATE NEG (NEG); URINE PH 5.5 (5-8); URINE PROTEIN 1+ (NEG); URINE SPECIFIC GRAVITY 1.024 (1.003-1.035)
[2016-08-22 11:43] LABS: CULTURE INDICATED? YES; URINE BACTERIA AUWI NEG (NEGATIVE); URINE SQUAMOUS EPITHELIAL CELL OCC /[HPF]
[2016-08-22 11:47] LABS: LEGIONELLA AG URINE NEG (NEG)
[2016-08-22 12:08] LABS: URINE GRANULAR CAST 0-2 /[HPF]
[2016-08-22 12:11] LABS: URINE BILIRUBIN NEG (NEG)
[2016-08-22 14:40] LABS: BUN/CREATININE RATIO 25.45; CALCIUM SERUM 7.3 mg/dL (8.4-10.2); CREATININE SERUM 1.1 mg/dL (0.6-1.4); GLOM FILT RATE Estimated 64.9 mL/min (>60); POTASSIUM 3.8 mmol/L (3.5-5.1)
[2016-08-23 03:17] LABS: HEMATOCRIT 40.5 % (38.0-50.0); MEAN CELL VOLUME 92.3 FL (83-96); MEAN CORPUSCULAR HEMOGLOBIN 29.6 PG (28-34); MEAN CORPUSCULAR HGB CONC 32.1 g/dL (30-36); MEAN PLATELET VOLUME 9.1 FL (6.5-11.5); RED BLOOD COUNT 4.39 X10e (3.90-5.60); WHITE BLOOD COUNT 22.8 X10e3 (4.0-10.5)
[2016-08-23 03:43] LABS: CHOLESTEROL 101 mg/dL (0-200); HDL CHOLESTEROL 5 mg/dL (29-75); LDL CHOLESTEROL 67 mg/dL (-130); LDL/HDL RATIO 13 RATIO (0-4); TRIGLYCERIDES 143 mg/dL (10-160)
[2016-08-23 04:11] LABS: ARTERIAL BLD GAS O2 SATURATION 94.4 % (90.0-100.0); ARTERIAL BLOOD GAS CARBOXY HB 0.5 %sat (0.0-9.0); ARTERIAL BLOOD GAS HCO3 22.2 mmol/L; ARTERIAL BLOOD GAS MET HB 0.8 %sat (0.0-2.0); ARTERIAL BLOOD GAS PCO2 42.4 mmHg (35.0-45.0); ARTERIAL BLOOD GAS PO2 82.1 mmHg (80.0-100); ARTERIAL BLOOD GAS pH 7.327 (7.350-7.450)
[2016-08-23 04:16] LABS: ARTERIAL BLOOD GAS ALLEN TEST NORMAL; ARTERIAL BLOOD GAS ART SITE RIGHT RADIAL; ARTERIAL BLOOD GAS DELIVERY NASAL CANNULA; ARTERIAL DRAW? YES
[2016-08-23 08:00] LABS: BUN/CREATININE RATIO 26.36; CALCIUM SERUM 7.7 mg/dL (8.4-10.2); CREATININE SERUM 1.1 mg/dL (0.6-1.4); GLOM FILT RATE Estimated 64.9 mL/min (>60); POTASSIUM 4.2 mmol/L (3.5-5.1)
[2016-08-23 16:59] LABS: BUN/CREATININE RATIO 28.75; CALCIUM SERUM 8.3 mg/dL (8.4-10.2); CREATININE SERUM 0.8 mg/dL (0.6-1.4); GLOM FILT RATE Estimated 86.8 mL/min (>60); POTASSIUM 3.6 mmol/L (3.5-5.1)
[2016-08-23 20:00] LABS: SODIUM URINE RANDOM <10 mmol/L
[2016-08-23 20:05] LABS: OSMOLALITY,URINE 453 mOsmo/kg (250-900)
[2016-08-24 05:26] LABS: BASOPHIL% 0.2 % (0-2.5); HEMATOCRIT 39.7 % (38.0-50.0); HEMOGLOBIN 12.8 gm/dL (13.0-16.0); LYMPHOCYTE# 0.2 X10e3 (1.0-3.5); LYMPHOCYTE% 1.8 % (17.0-45.0); MEAN CELL VOLUME 91.5 FL (83-96); MEAN CORPUSCULAR HEMOGLOBIN 29.4 PG (28-34); MEAN CORPUSCULAR HGB CONC 32.2 g/dL (30-36); MEAN PLATELET VOLUME 8.7 FL (6.5-11.5); MONOCYTE# 0.4 X10e3 (0-1.0); PLATELET COUNT 119 X10e3 (140-420); RED BLOOD COUNT 4.34 X10e (3.90-5.60); WHITE BLOOD COUNT 13.7 X10e3 (4.0-10.5)
[2016-08-24 05:45] LABS: DIFF IND NO
[2016-08-24 06:19] LABS: BUN/CREATININE RATIO 28.57; CREATININE SERUM 0.7 mg/dL (0.6-1.4); GLOM FILT RATE Estimated 91.7 mL/min (>60); POTASSIUM 3.9 mmol/L (3.5-5.1)
[2016-08-25 06:40] LABS: BUN/CREATININE RATIO 28.57; CALCIUM SERUM 8.5 mg/dL (8.4-10.2); CREATININE SERUM 0.7 mg/dL (0.6-1.4); GLOM FILT RATE Estimated 91.7 mL/min (>60); MAGNESIUM 1.9 mg/dL (1.6-3.0); POTASSIUM 4.2 mmol/L (3.5-5.1)
[2016-08-25 07:31] LABS: BASOPHIL% 0.2 % (0-2.5); EOSINOPHIL% 0.1 % (0.0-7.0); HEMATOCRIT 43.6 % (38.0-50.0); HEMOGLOBIN 13.9 gm/dL (13.0-16.0); LYMPHOCYTE# 0.2 X10e3 (1.0-3.5); LYMPHOCYTE% 1.8 % (17.0-45.0); MEAN CELL VOLUME 92.1 FL (83-96); MEAN CORPUSCULAR HEMOGLOBIN 29.4 PG (28-34); MEAN CORPUSCULAR HGB CONC 31.9 g/dL (30-36); MEAN PLATELET VOLUME 9.2 FL (6.5-11.5); MONOCYTE# 0.1 X10e3 (0-1.0); MONOCYTE% 0.6 % (3.0-12.0); NEUTROPHIL# 13.3 X10e3 (1.5-7.1); NEUTROPHIL% 97.3 % (40-75); PLATELET COUNT 128 X10e3 (140-420); RED BLOOD COUNT 4.74 X10e (3.90-5.60); RED CELL DISTRIBUTION WIDTH 15.1 % (11.0-15.5); WHITE BLOOD COUNT 13.7 X10e3 (4.0-10.5)
[2016-08-25 07:33] LABS: DIFF IND YES
[2016-08-25 09:20] LABS: ANISOCYTOSIS SL; PLATELET ESTIMATE DECREASED (NORMAL)
[2016-08-26 09:01] LABS: HEMATOCRIT 43.9 % (38.0-50.0); HEMOGLOBIN 14.3 gm/dL (13.0-16.0); MEAN CELL VOLUME 90.6 FL (83-96); MEAN CORPUSCULAR HEMOGLOBIN 29.4 PG (28-34); MEAN CORPUSCULAR HGB CONC 32.5 g/dL (30-36); RED BLOOD COUNT 4.84 X10e (3.90-5.60); RED CELL DISTRIBUTION WIDTH 15.3 % (11.0-15.5); WHITE BLOOD COUNT 12.9 X10e3 (4.0-10.5)
[2016-08-26 09:12] LABS: ARTERIAL BLD GAS O2 SATURATION 95.7 % (90.0-100.0); ARTERIAL BLOOD GAS CARBOXY HB 0.6 %sat (0.0-9.0); ARTERIAL BLOOD GAS HCO3 26.2 mmol/L; ARTERIAL BLOOD GAS MET HB 0.5 %sat (0.0-2.0); ARTERIAL BLOOD GAS PCO2 43.3 mmHg (35.0-45.0); ARTERIAL BLOOD GAS PO2 89.2 mmHg (80.0-100)
[2016-08-26 09:14] LABS: ARTERIAL BLOOD GAS ART SITE LEFT RADIAL; ARTERIAL DRAW? YES
[2016-08-26 09:15] LABS: ARTERIAL BLOOD GAS DELIVERY NASAL CANNULA
[2016-08-26 09:34] LABS: BUN/CREATININE RATIO 46.66; CALCIUM SERUM 8.5 mg/dL (8.4-10.2); CREATININE SERUM 0.6 mg/dL (0.6-1.4); GLOM FILT RATE Estimated 97.7 mL/min (>60); POTASSIUM 4.8 mmol/L (3.5-5.1)
[2016-08-27 06:49] LABS: HEMATOCRIT 41.6 % (38.0-50.0); HEMOGLOBIN 13.5 gm/dL (13.0-16.0); MEAN CORPUSCULAR HEMOGLOBIN 29.8 PG (28-34); MEAN CORPUSCULAR HGB CONC 32.3 g/dL (30-36); MEAN PLATELET VOLUME 9.1 FL (6.5-11.5); RED BLOOD COUNT 4.52 X10e (3.90-5.60); RED CELL DISTRIBUTION WIDTH 15.4 % (11.0-15.5); WHITE BLOOD COUNT 14.2 X10e3 (4.0-10.5)
[2016-08-27 07:35] LABS: CALCIUM SERUM 8.1 mg/dL (8.4-10.2); CREATININE SERUM 0.5 mg/dL (0.6-1.4); GLOM FILT RATE Estimated 105.3 mL/min (>60); POTASSIUM 4.6 mmol/L (3.5-5.1)
[2016-08-28 05:46] LABS: HEMATOCRIT 43.2 % (38.0-50.0); HEMOGLOBIN 13.9 gm/dL (13.0-16.0); MEAN CELL VOLUME 91.4 FL (83-96); MEAN CORPUSCULAR HEMOGLOBIN 29.5 PG (28-34); MEAN CORPUSCULAR HGB CONC 32.3 g/dL (30-36); MEAN PLATELET VOLUME 9.2 FL (6.5-11.5); RED BLOOD COUNT 4.72 X10e (3.90-5.60); RED CELL DISTRIBUTION WIDTH 14.8 % (11.0-15.5); WHITE BLOOD COUNT 16.3 X10e3 (4.0-10.5)
[2016-08-28 06:52] LABS: CREATININE SERUM 0.4 mg/dL (0.6-1.4); GLOM FILT RATE Estimated 115.4 mL/min (>60); POTASSIUM 4.5 mmol/L (3.5-5.1)
[2016-08-29 01:21] LABS: ARTERIAL BLD GAS O2 SATURATION 60.1 % (90.0-100.0); ARTERIAL BLOOD GAS CARBOXY HB 0.6 %sat (0.0-9.0); ARTERIAL BLOOD GAS MET HB 0.4 %sat (0.0-2.0); ARTERIAL BLOOD GAS pH 7.273 (7.350-7.450)
[2016-08-29 01:22] LABS: ARTERIAL BLOOD GAS PCO2 67.1 mmHg (35.0-45.0)
[2016-08-29 01:25] LABS: ARTERIAL BLOOD GAS ALLEN TEST NORMAL; ARTERIAL BLOOD GAS ART SITE LEFT RADIAL; ARTERIAL BLOOD GAS DELIVERY NON REBREATHER MASK; ARTERIAL BLOOD GAS PO2 39.2 mmHg (80.0-100); ARTERIAL DRAW? YES
[2016-08-29 02:40] LABS: ARTERIAL BLD GAS O2 SATURATION 98.9 % (90.0-100.0); ARTERIAL BLOOD GAS CARBOXY HB 0.1 %sat (0.0-9.0); ARTERIAL BLOOD GAS HCO3 33.8 mmol/L; ARTERIAL BLOOD GAS MET HB 0.7 %sat (0.0-2.0); ARTERIAL BLOOD GAS pH 7.413 (7.350-7.450)
[2016-08-29 02:44] LABS: ARTERIAL BLOOD GAS ALLEN TEST NORMAL; ARTERIAL BLOOD GAS ART SITE LEFT RADIAL; ARTERIAL BLOOD GAS PCO2 52.9 mmHg (35.0-45.0); ARTERIAL DRAW? YES
[2016-08-29 06:16] LABS: BASOPHIL% 0.1 % (0-2.5); EOSINOPHIL# 0.1 X10e3 (0-0.7); EOSINOPHIL% 0.2 % (0.0-7.0); HEMOGLOBIN 14.6 gm/dL (13.0-16.0); LYMPHOCYTE# 0.4 X10e3 (1.0-3.5); LYMPHOCYTE% 1.4 % (17.0-45.0); MEAN CORPUSCULAR HEMOGLOBIN 29.6 PG (28-34); MEAN CORPUSCULAR HGB CONC 32.5 g/dL (30-36); MONOCYTE# 0.3 X10e3 (0-1.0); MONOCYTE% 0.9 % (3.0-12.0); NEUTROPHIL% 97.4 % (40-75); PLATELET COUNT 155 X10e3 (140-420); RED BLOOD COUNT 4.94 X10e (3.90-5.60); RED CELL DISTRIBUTION WIDTH 15.3 % (11.0-15.5)
[2016-08-29 06:18] LABS: WHITE BLOOD COUNT 26.7 X10e3 (4.0-10.5)
[2016-08-29 06:19] LABS: DIFF IND YES
[2016-08-29 07:10] LABS: BUN/CREATININE RATIO 42.85; CALCIUM SERUM 8.1 mg/dL (8.4-10.2); CREATININE SERUM 0.7 mg/dL (0.6-1.4); GLOM FILT RATE Estimated 91.7 mL/min (>60); POTASSIUM 4.5 mmol/L (3.5-5.1)
[2016-08-29 07:11] LABS: ANISOCYTOSIS SL; PLATELET ESTIMATE NORMAL (NORMAL)
[2016-08-30 06:02] LABS: BASOPHIL% 0.1 % (0-2.5); HEMATOCRIT 42.3 % (38.0-50.0); HEMOGLOBIN 13.6 gm/dL (13.0-16.0); LYMPHOCYTE# 0.4 X10e3 (1.0-3.5); LYMPHOCYTE% 1.7 % (17.0-45.0); MEAN CELL VOLUME 91.1 FL (83-96); MEAN CORPUSCULAR HEMOGLOBIN 29.3 PG (28-34); MEAN CORPUSCULAR HGB CONC 32.1 g/dL (30-36); MEAN PLATELET VOLUME 8.9 FL (6.5-11.5); MONOCYTE# 0.3 X10e3 (0-1.0); MONOCYTE% 1.5 % (3.0-12.0); NEUTROPHIL# 21.7 X10e3 (1.5-7.1); NEUTROPHIL% 96.7 % (40-75); PLATELET COUNT 125 X10e3 (140-420); RED BLOOD COUNT 4.65 X10e (3.90-5.60); RED CELL DISTRIBUTION WIDTH 14.9 % (11.0-15.5); WHITE BLOOD COUNT 22.5 X10e3 (4.0-10.5)
[2016-08-30 06:04] LABS: DIFF IND NO
[2016-08-30 06:38] LABS: BUN/CREATININE RATIO 48.33; CALCIUM SERUM 7.9 mg/dL (8.4-10.2); CREATININE SERUM 0.6 mg/dL (0.6-1.4); GLOM FILT RATE Estimated 97.7 mL/min (>60); POTASSIUM 4.3 mmol/L (3.5-5.1)
[2016-08-31 06:15] LABS: BASOPHIL# 0.1 X10e3 (0-0.3); BASOPHIL% 0.3 % (0-2.5); HEMATOCRIT 41.9 % (38.0-50.0); HEMOGLOBIN 13.4 gm/dL (13.0-16.0); LYMPHOCYTE# 0.3 X10e3 (1.0-3.5); LYMPHOCYTE% 0.8 % (17.0-45.0); MEAN CELL VOLUME 91.4 FL (83-96); MEAN CORPUSCULAR HEMOGLOBIN 29.3 PG (28-34); MEAN PLATELET VOLUME 9.1 FL (6.5-11.5); MONOCYTE# 0.1 X10e3 (0-1.0); MONOCYTE% 0.2 % (3.0-12.0); NEUTROPHIL# 33.5 X10e3 (1.5-7.1); NEUTROPHIL% 98.7 % (40-75); PLATELET COUNT 118 X10e3 (140-420); RED BLOOD COUNT 4.59 X10e (3.90-5.60); RED CELL DISTRIBUTION WIDTH 15.2 % (11.0-15.5)
[2016-08-31 06:19] LABS: DIFF IND YES; WHITE BLOOD COUNT 33.9 X10e3 (4.0-10.5)
[2016-08-31 06:47] LABS: BUN/CREATININE RATIO 53.33; CREATININE SERUM 0.6 mg/dL (0.6-1.4); GLOM FILT RATE Estimated 97.7 mL/min (>60); POTASSIUM 4.9 mmol/L (3.5-5.1)
[2016-08-31 07:28] LABS: ANISOCYTOSIS SL; PLATELET ESTIMATE DECREASED (NORMAL)
[2016-08-31] MEDS ORDERED: AUGMENTIN PO (15:20)
[2016-08-31 18:57] LABS: URINE APPEARANCE CLEAR; URINE BILIRUBIN NEG (NEG); URINE BLOOD TRACE (NEG); URINE COLOR YELLOW; URINE GLUCOSE NEG (NEG); URINE KETONE NEG (NEG); URINE LEUKOCYTE ESTERASE NEG (NEG); URINE NITRATE NEG (NEG); URINE PROTEIN TRACE (NEG); URINE SPECIFIC GRAVITY 1.021 (1.003-1.035)
[2016-08-31 18:59] LABS: URINE BACTERIA AUWI NEG (NEGATIVE); URINE SQUAMOUS EPITHELIAL CELL NONE SEEN /[HPF]; UWBCS1 AUWI 0-2 (0-5)
[2016-09-01 05:49] LABS: HEMATOCRIT 38.4 % (38.0-50.0); HEMOGLOBIN 12.5 gm/dL (13.0-16.0); MEAN CELL VOLUME 91.6 FL (83-96); MEAN CORPUSCULAR HEMOGLOBIN 29.9 PG (28-34); MEAN CORPUSCULAR HGB CONC 32.7 g/dL (30-36); MEAN PLATELET VOLUME 9.7 FL (6.5-11.5); RED BLOOD COUNT 4.19 X10e (3.90-5.60); RED CELL DISTRIBUTION WIDTH 14.9 % (11.0-15.5); WHITE BLOOD COUNT 33.2 X10e3 (4.0-10.5)
[2016-09-01 06:08] LABS: BUN/CREATININE RATIO 51.66; CALCIUM SERUM 7.9 mg/dL (8.4-10.2); CREATININE SERUM 0.6 mg/dL (0.6-1.4); GLOM FILT RATE Estimated 97.7 mL/min (>60); POTASSIUM 4.9 mmol/L (3.5-5.1)
== END 2016-09-01 10:23 | disposition expired | DRG 871 ==
LOC: CED 19:43 → CICCU3 22:15 → CEDOF 22:15 → CED 22:41 → CEDOF 08-22 05:50 → CICCU3 08-22 05:50 → C5B 08-24 16:05 → CICCU3 08-29 01:27 → C5B 08-30 16:27
PROVIDERS: Emergency Medicine; Internal Medicine; Internal Medicine Cardiovascular Disease; Nurse Practitioner
PROC: B24BYZZ Ultrasonography of Heart with Aorta using Other Contrast (ICD-10-PCS; 2016-08-22)
PROC: 02HV33Z Insertion of Infusion Device into Superior Vena Cava, Percutaneous Approach (ICD-10-PCS; 2016-08-25)
PROC: B518YZA Fluoroscopy of Superior Vena Cava using Other Contrast, Guidance (ICD-10-PCS; 2016-08-25)
PROC: B548ZZA Ultrasonography of Superior Vena Cava, Guidance (ICD-10-PCS; 2016-08-25)
PROC: 0BH17EZ Insertion of Endotracheal Airway into Trachea, Via Natural or Artificial Opening (ICD-10-PCS; principal; 2016-09-01)
PROC: 5A1935Z Respiratory Ventilation, Less than 24 Consecutive Hours (ICD-10-PCS; 2016-09-01)
DX: A41.9 Sepsis, unspecified organism (principal); R65.21 Severe sepsis with septic shock; J96.21 Acute and chronic respiratory failure with hypoxia; J18.9 Pneumonia, unspecified organism; I50.33 Acute on chronic diastolic (congestive) heart failure; G93.41 Metabolic encephalopathy; N17.9 Acute kidney failure, unspecified; D69.6 Thrombocytopenia, unspecified; J96.22 Acute and chronic respiratory failure with hypercapnia; E44.0 Moderate protein-calorie malnutrition; J44.0 Chronic obstructive pulmonary disease with (acute) lower respiratory infection; K56.7 Ileus, unspecified; E87.1 Hypo-osmolality and hyponatremia; J44.1 Chronic obstructive pulmonary disease with (acute) exacerbation; I48.92 Unspecified atrial flutter; I48.91 Unspecified atrial fibrillation; Z99.81 Dependence on supplemental oxygen; D72.829 Elevated white blood cell count, unspecified; Z86.711 Personal history of pulmonary embolism; Z86.718 Personal history of other venous thrombosis and embolism; Z79.01 Long term (current) use of anticoagulants; G47.33 Obstructive sleep apnea (adult) (pediatric); Z91.19 Patient's noncompliance with other medical treatment and regimen; N40.0 Benign prostatic hyperplasia without lower urinary tract symptoms; I25.10 Atherosclerotic heart disease of native coronary artery without angina pectoris; G43.909 Migraine, unspecified, not intractable, without status migrainosus; I25.2 Old myocardial infarction; M19.90 Unspecified osteoarthritis, unspecified site; F17.210 Nicotine dependence, cigarettes, uncomplicated; G89.4 Chronic pain syndrome; R44.1 Visual hallucinations; Z68.30 Body mass index [BMI] 30.0-30.9, adult; R74.9 Abnormal serum enzyme level, unspecified; R73.9 Hyperglycemia, unspecified; T38.0X5A Adverse effect of glucocorticoids and synthetic analogues, initial encounter; E66.9 Obesity, unspecified
CPT/HCPCS: 36600; 70450; 71010; 71260; 74000; 74020; 76937; 77001; 80048; 80053; 80061; 80076; 81003; 82550; 82553; 82803; 83605; 83735; 83880; 83935; 84100; 84134; 84300; 84443; 84484; 85025; 85027; 85610; 85730; 87040; 87070; 87086; 87205; 87449; 87899; 92610; 92950; 93005; 93306; 94640; 94660; 94667; 94668; 94760; 94761; 96365; 96367; 96376; 97110; 97112; 97116; 97163; 97167; 97530; 97535; 99291; C1751; C9113; G0238; G8978-GP; G8979-GP; G8987-GO; G8988-GO; G8996-GN; G8997-GN; J0171; J0282; J0456; J0696; J1650; J1940; J2405; J2765; J2920; J3490; Q9967